=== PATIENT | male | born 1945 | race Caucasian/White ===

== ENCOUNTER 2017-10-14 20:36 | Inpatient (IN) | payer MEDICARE, OTHER ==
[2017-10-14] VITALS (9 sets, daily range): BP systolic 105–130; BP diastolic 55–59; PULSE 84–94; RESP 20–25; TEMP 98.8; O2SAT 35–100
[~2017-10-14] VITALS: Ht 175.3 cm; Wt 118.5 kg
[~2017-10-14 20:36] MED LIST: AGGR20025 PO; BUSP5TAB3 PO; CHOL1TAB7 PO; FOLI1 PO; GEMF600T PO; METO25 PO; OMEP20TA39 PO; REME30TA PO; SERO300T PO; SERT100 PO; SIMV40 PO; VITA400C28 PO; ZOCO80TA PO
[2017-10-14] MEDS ORDERED: NALOXONE HCL 0.4 MG/ML AMP IV PUSH PRN (21:00)
[2017-10-14] MEDS ORDERED: RESP: ALBUTEROL 2.5 MG/IPRATROPIUM 0.5 MG NEB (SCH) NEB ONE (21:00)
[2017-10-14] MEDS ORDERED: BUSP15TA PO (21:16)
[2017-10-14] MEDS ORDERED: TYLE325T PO (21:16)
[2017-10-14] MEDS ORDERED: FOLI400T PO (21:16)
[2017-10-14] MEDS ORDERED: OMEP20TA93 PO (21:16)
[2017-10-14] MEDS ORDERED: D 50CAP2 PO (21:16)
[2017-10-14] MEDS ORDERED: METO25TA3 PO (21:16)
[2017-10-14] MEDS ORDERED: SIMV40TA PO (21:16)
[2017-10-14] MEDS ORDERED: MIRT30TA PO (21:16)
[2017-10-14] MEDS ORDERED: SERT-129 PO (21:16)
[2017-10-14] MEDS ORDERED: GEMF600T PO (21:16)
[2017-10-14] MEDS ORDERED: AGGR20025 PO (21:16)
[2017-10-14] MEDS ORDERED: QUET1TAB10 PO (21:16)
--- NOTE | 2017-10-14 21:27 | PD ---
HPI Chief Complaint: Altered Mental Status Time Seen by Provider: 20:52 Travel History International Travel<30 days: No Contact w/Intl Traveler<30days: No Traveled to known affect area: No History of Present Illness HPI Patient is from home where he lives with his son patient suddenly had a deterioration of his respiratory status over the last few days due to an upper respiratory infection with a cough now today became worse and more confused. and lethargic . On arrival he is is 100% nonrebreather in place satting 100% vitals are within normal limits however patient is minimally responsive apparently he took his nighttime meds prior to the paramedics being called and he is severely sedated with multiple sedation meds including Seroquel. Is unclear he has a history of COPD because his meds do not include any COPD meds son is en route but at this time we only have the EMS report and his bag of medication and last patient is not able to give a good history he is a very sedated minimally responsive however he is protecting his airway and has no need to be intubated at this time he is holding his sat with the nonrebreather in place he will open his eyes to command [facility] Past Medical History Arthritis: No Asthma: No Blood Disorders: No Anxiety: Yes Depression: Yes Heart Rhythm Problems: No Cancer: No Cardiac Catheterization: Yes Cardiovascular Problems: Yes (ID) High Cholesterol: Yes Chemotherapy: No Chest Pain: Yes Congestive Heart Failure: Yes COPD: Yes Cerebrovascular Accident: Yes Diabetes: No Diminished Hearing: No Endocrine: No Gastrointestinal Disorders: Yes (DIVERTICULI) GERD: Yes Genitourinary: No Headaches: Yes (MILD) Hepatitis: No Hiatal Hernia: No Hypertension: Yes Immune Disorder: No Musculoskeletal: No Neurologic: Yes Psychiatric: Yes (MOOD PROBLEMS, DEPRESSION) Reproductive: No Respiratory: Yes Migraines: No Myocardial Infarction: Yes (X3) Seizures: No Sleep Apnea: Yes Thyroid Disease: No Ulcer: No Past Surgical History Abdominal Surgery: No AICD: No Appendectomy: No Arteriovenous Shunt: No Cardiac Surgery: Yes (CAROTID ENDART RIGHT, STENTS) Cholecystectomy: Yes Coronary Artery Bypass Graft: No Coronary Stent: Yes Ear Surgery: No Endocrine Surgery: No Eye Surgery: No Genitourinary Surgery: No Gynecologic Surgery: No Insulin Pump: No Joint Replacement: Yes (LT KNEE RE-CONSTRUCTION 3X) Neurologic Surgery: Yes (LEFT SIDED WEAKNESS-BRAIN SX 2 MOS AGO(ANEURISM )) Oral Surgery: No Pacemaker: No Other Surgery: Yes (RT ROTATOR CUFF REPAIR(RT SHOULDER SX)) Family History Family Myocardial Infarction: Yes (FATHER HAD ID AGE 58) Social History Alcohol Use: No (NONE ANY MORE. WAS A SOCIAL DRINKER ONLY) Tobacco Use: Yes (1/2 PPD) Substance Use: No Allergies-Medications (Allergen,Severity, Reaction): Coded Allergies: codeine (Unverified Allergy, Severe, Nausea/Vomiting, 05/18/17) Reported Meds & Prescriptions Reported Meds & Active Scripts Active Reported Metformin (Metformin HCl) 500 Mg Tab 500 Mg PO BIDPC Losartan (Losartan Potassium) 25 Mg Tab 12.5 Mg PO DAILY Gabapentin 100 Mg Cap 100 Mg PO HS Atorvastatin (Atorvastatin Calcium) 40 Mg Tab 40 Mg PO HS Aspirin 325 Mg Tab 325 Mg PO DAILY Folic Acid 0.4 Mg Tab 1 Mg PO DAILY D3 Maximum Strength (Cholecalciferol) 5,000 Unit Cap 5,000 Units PO DAILY Gemfibrozil 600 Mg Tab 600 Mg PO BIDAC Take 30 minutes prior to breakfast and dinner. Omeprazole 20 Mg Tab 20 Mg PO DAILY Tylenol (Acetaminophen) 325 Mg Tab 325 Mg PO ONCE Mirtazapine 30 Mg Tab 30 Mg PO HS Buspirone (Buspirone HCl) 15 Mg Tab 15 Mg PO TID Sertraline (Sertraline HCl) 100 Mg Tab 100 Mg PO BID Quetiapine (Quetiapine Fumarate) 300 Mg Tab 300 Mg PO HS Metoprolol Tartrate 25 Mg Tab 12.5 Mg PO BID Aggrenox (Dipyridamole/Aspirin) 200-25 Mg Cap 1 Cap PO BID Review of Systems ROS Limitations: Other: (lethargic from taking all of his nighttime sedation meds as well as possible sepsis) Except as stated in HPI: all other systems reviewed are Neg Physical Exam Narrative GENERAL: is very sedated seems he is lethargic possibly due to sepsis infection or oversedation with medication he will open his eyes to command voice command SKIN: Warm and dry. HEAD: Atraumatic. Normocephalic. EYES: Pupils equal and round. No scleral icterus. No injection or drainage. Pinpoint pupils bilateral ENT: No nasal bleeding or discharge. Mucous membranes pink and moist. NECK: Trachea midline. No JVD. CARDIOVASCULAR: Regular rate and rhythm. RESPIRATORY: No accessory muscle use. . Diffuse wheeze in the upper airways bilaterally. GASTROINTESTINAL: Abdomen soft,distended. Hepatic and splenic margins not palpable. MUSCULOSKELETAL: Extremities without clubbing, cyanosis, or edema. No obvious deformities. NEUROLOGICAL: Patient is very lethargic however he will open his eyes to command there is no obvious focal deficit he moves his arms and legs however he is very sedated very lethargic questionable oversedation versus sepsis and altered mental status Psychiatric very lethargic Data Data Last Documented VS Vital Signs Date Time Temp Pulse Resp B/P (MAP) Pulse Ox O2 Delivery O2 Flow Rate FiO2 10/14/17 23:50 85 25 123/59 (80) 98 40 10/14/17 21:45 Nasal Cannula 4.00 10/14/17 20:48 98.8 Orders Orders Electrocardiogram (10/14/17 20:52) Complete Blood Count With Diff (10/14/17 20:52) Comprehensive Metabolic Panel (10/14/17 20:52) Lactic Acid Sepsis Protocol (10/14/17 20:52) Lipase (10/14/17 20:52) Blood Culture (10/14/17 20:52) Chest, Single Ap (10/14/17 20:52) Blood Glucose (10/14/17 20:52) Ecg Monitoring (10/14/17 20:52) Iv Access Insert/Monitor (10/14/17 20:52) Oximetry (10/14/17 20:52) Oxygen Administration (10/14/17 20:52) Albuterol-Ipratropium Neb (Duoneb Neb) (10/14/17 21:00) Naloxone Inj (Narcan Inj) (10/14/17 21:00) Piperacil-Tazo 3.375 Gm Premix (Zosyn 3. (10/14/17 21:30) Vancomycin Inj (Vancomycin Inj) (10/14/17 21:30) B-Type Natriuretic Peptide (10/14/17 21:17) Troponin I (10/14/17 21:54) Resp Bipap / Cpap Non Invas Vt (10/14/17 ) Arterial Blood Gas (Abg) (10/14/17 23:20) Admit To Inpatient (10/15/17 ) Vital Signs (Adult) Q4H (10/15/17 00:07) Activity Oob With Assistance (10/15/17 00:07) Aircraft Engine Cylinder Mechanic / Telemetry .CONTINUOUS (10/15/17 00:07) Diet Heart Healthy (10/15/17 Breakfast) Sodium Chloride 0.9% Flush (Ns Flush) (10/15/17 00:15) Sodium Chloride 0.9% Flush (Ns Flush) (10/15/17 09:00) Pt Request For Service (10/15/17 00:07) Case Management Consult (10/15/17 00:07) Naloxone Inj (Narcan Inj) (10/15/17 00:15) Inpatient Certification (10/15/17 ) Albuterol-Ipratropium Neb (Duoneb Neb) (10/15/17 04:00) Albuterol-Ipratropium Neb (Duoneb Neb) (10/15/17 00:15) Admit Order (Ed Use Only) (10/15/17 00:10) Labs Laboratory Tests Test 10/14/17 20:59 10/14/17 23:20 White Blood Count 6.8 TH/MM3 Red Blood Count 3.63 MIL/MM3 Hemoglobin 11.6 GM/DL Hematocrit 35.9 % Mean Corpuscular Volume 98.8 FL Mean Corpuscular Hemoglobin 31.9 PG Mean Corpuscular Hemoglobin Concent 32.3 % Red Cell Distribution Width 17.6 % Platelet Count 195 TH/MM3 Mean Platelet Volume 8.0 FL Neutrophils (%) (Auto) 72.3 % Lymphocytes (%) (Auto) 10.3 % Monocytes (%) (Auto) 15.2 % Eosinophils (%) (Auto) 2.0 % Basophils (%) (Auto) 0.2 % Neutrophils # (Auto) 4.9 TH/MM3 Lymphocytes # (Auto) 0.7 TH/MM3 Monocytes # (Auto) 1.0 TH/MM3 Eosinophils # (Auto) 0.1 TH/MM3 Basophils # (Auto) 0.0 TH/MM3 CBC Comment DIFF FINAL Differential Comment Blood Urea Nitrogen 22 MG/DL Creatinine 1.21 MG/DL Random Glucose 123 MG/DL Total Protein 7.5 GM/DL Albumin 3.3 GM/DL Calcium Level 8.2 MG/DL Alkaline Phosphatase 92 U/L Aspartate Amino Transf (AST/SGOT) 21 U/L Alanine Aminotransferase (ALT/SGPT) 32 U/L Total Bilirubin 0.4 MG/DL Sodium Level 141 MEQ/L Potassium Level 4.3 MEQ/L Chloride Level 104 MEQ/L Carbon Dioxide Level 32.4 MEQ/L Anion Gap 5 MEQ/L Estimat Glomerular Filtration Rate 59 ML/MIN Lactic Acid Level 1.0 mmol/L Troponin I LESS THAN 0.02 NG/ML B-Type Natriuretic Peptide 85 PG/ML Lipase 268 U/L Blood Gas Puncture Site RT RADIAL Blood Gas Patient Temperature 98.6 Blood Gas HCO3 30 mmol/L Blood Gas Base Excess 3.9 mmol/L Blood Gas Oxygen Saturation 94 % Arterial Blood pH 7.27 Arterial Blood Partial Pressure CO2 67 mmHg Arterial Blood Partial Pressure O2 83 mmHG Arterial Blood Oxygen Content 14.0 Vol % Arterial Blood Carboxyhemoglobin 1.5 % Arterial Blood Methemoglobin 0.1 % Blood Gas Hemoglobin 10.6 G/DL Oxygen Delivery Device BIPAP Blood Gas Ventilator Setting IPAP12 EPAP6 Blood Gas Inspired Oxygen 40 % MDM Medical Decision Making Medical Screen Exam Complete: Yes Emergency Medical Condition: Yes Medical Record Reviewed: Yes Interpretation(s) EKG is normal sinus rhythm at a rate of 80 no ectopy one PAC Differential Diagnosis Differential diagnosis includes CHF versus COPD exacerbation versus aspiration pneumonia due to oversedation versus bacterial pneumonia versus pneumothorax versus influenza bronchitis Narrative Course Patient is immediately placed on a nonrebreather to get a saturation 200% his pressure is within normal limits his heart rate is within normal limits however after we take off the nonrebreather nonrebreather he is descending to 85 put him on 4 L nasal cannula he holds around 9192 but then desats again. Empirically I give him antibiotics because on the medial x-ray looks like he got a left lower infiltrate and after time I put him on BiPAP because he is descending he is a large man and he is taking a large amount of sedation to go to bed is normal limits according to his son however it may be causing him have sleep apnea which is part of the reason he's retaining some CO2 ABG shows 67% CO2 and his gas increase the rate from 12-14 on his ventilator BiPAP and admit to [facility] for for their evaluation and give him antibiotics Vanco and Zosyn as well as his troponin is negative his EKG is normal sinus rhythm at a rate of 80 chest x-ray is being read as nonspecific thickened acute pathology he is admitted to [facility] with the BiPAP machine Critical Care Narrative 30 minutes of critical care time on this patient Diagnosis Primary Impression: Respiratory distress Additional Impression: Hypercapnia Admitting Information Admitting Physician Requests: Admit Scripts Budesonide-Formoterol Inh (Symbicort Inh) 160-4.5 Mcg/Act Aero 1 PUFF INH Q12HR, #1 INHALER 0 Refills Prov: Alexi Tran MD 10/17/17 [guaiFENesin ER] 600 MG TABCR No Conflict Check 600 MG PO BID for respiratory, #60 TAB 0 Refills Prov: Alexi Tran MD 10/17/17 Oxygen (O2) (Oxygen (O2)) Device LITER JESSICA.CANULA CONTINUOUS for Prevent Hypoxemia, #2 0 Refills Oxygen Concentrator Portable Gaseous 2 L/min via Nasal Canula Continuous For 99 months Prov: Alexi Tran MD 10/17/17 Cecilio Navas MD Oct 14, 2017 21:27
[2017-10-14] MEDS ORDERED: PIPERACIL-TAZO 3.375 GM PREMIX 50 ML IV ONE (21:30)
[2017-10-14] MEDS ORDERED: VANCOMYCIN INJ 1,000 MG in SODIUM CHLOR 0.9% 250 ML INJ 250 ML IV ONE (21:30)
[2017-10-14 21:41] LABS: AUTOMATED NEUTROPHIL # 4.9 TH/MM3 (1.8-7.7); BASOPHIL % 0.2 % (0.0-2.0); EOSINOPHIL # 0.1 TH/MM3 (0-0.4); HEMATOCRIT 35.9 % (39.0-51.0); HEMOGLOBIN 11.6 GM/DL (13.0-17.0); LYMPH % 10.3 % (9.0-44.0); LYMPHOCYTE # 0.7 TH/MM3 (1.0-4.8); MEAN CELL VOLUME 98.8 FL (80.0-100.0); MEAN CORPUSCULAR HEMOGLOBIN 31.9 PG (27.0-34.0); MEAN CORPUSCULAR HGB CONC 32.3 % (32.0-36.0); MONO % 15.2 % (0.0-8.0); NEUT % 72.3 % (16.0-70.0); PLATELET COUNT 195 TH/MM3 (150-450); RED BLOOD COUNT 3.63 MIL/MM3 (4.50-5.90); RED CELL DISTRIBUTION WIDTH 17.6 % (11.6-17.2); WHITE BLOOD COUNT 6.8 TH/MM3 (4.0-11.0)
--- NOTE | 2017-10-14 21:41 | RADRPT ---
EXAM DATE/TIME: 10/14/2017 21:06 [place] COMPARISON: No previous studies available for comparison. INDICATIONS : Shortness of breath. MEDICAL HISTORY : None. SURGICAL HISTORY : None. ENCOUNTER: Initial ACUITY: 1 day PAIN SCORE: Non-responsive. LOCATION: Bilateral chest FINDINGS: A single view of the chest demonstrates the lungs to be symmetrically aerated without evidence of mas s, infiltrate or effusion. The cardiomediastinal contours are unremarkable. Osseous structures are intact. CONCLUSION: No acute cardiopulmonary disease demonstrated. Lester Mann MD on October 14, 2017 at 21:37 Board Certified Radiologist. This report was verified electronically.
[2017-10-14 21:47] LABS: ALT (GPT) 32 U/L (12-78)
[2017-10-14 21:49] LABS: ALKALINE PHOSPHATASE 92 U/L (45-117); TOTAL BILIRUBIN ADULT 0.4 MG/DL (0.2-1.0); TOTAL PROTEIN 7.5 GM/DL (6.4-8.2)
[2017-10-14 21:54] LABS: ALBUMIN 3.3 GM/DL (3.4-5.0); AST (GOT) 21 U/L (15-37); BICARBONATE 32.4 MEQ/L (21.0-32.0); BLOOD UREA NITROGEN 22 MG/DL (7-18); CALCIUM 8.2 MG/DL (8.5-10.1); CHLORIDE 104 MEQ/L (98-107); CREATININE 1.21 MG/DL (0.60-1.30); GLOMERULAR FILTRATION RATE 59 ML/MIN (>89); GLUCOSE,RANDOM 123 MG/DL (74-106); LIPASE 268 U/L (73-393); SODIUM (NA) 141 MEQ/L (136-145)
[2017-10-14] MEDS ORDERED: ASPI-183 PO (22:15)
[2017-10-14] MEDS ORDERED: ATOR40TA16 PO (22:15)
[2017-10-14] MEDS ORDERED: LOSA25TA PO (22:15)
[2017-10-14] MEDS ORDERED: METF500T PO (22:15)
[2017-10-14] MEDS ORDERED: GABA100C4 PO (22:15)
[2017-10-15] VITALS (26 sets, daily range): BP systolic 130–154; BP diastolic 50–86; PULSE 70–105; RESP 18–24; TEMP 98–98.8; O2SAT 92–96
[2017-10-15] MEDS ORDERED: SODIUM CHLORIDE 0.9% FLUSH 10 ML FLUSH IV FLUSH PRN (00:15)
[2017-10-15] MEDS ORDERED: NALOXONE HCL 0.4 MG/ML AMP IV PUSH PRN (00:15)
[2017-10-15] MEDS ORDERED: RESP: ALBUTEROL 2.5 MG/IPRATROPIUM 0.5 MG NEB (PRN) NEB (00:15)
--- NOTE | 2017-10-15 00:56 | HHI.HP ---
[facility] Admission Diagnosis Hypercapnia Diagnoses: Travel History International Travel<30 Days: No Contact w/Intl Traveler <30 Da: No Traveled to Known Affected Are: No History of Present Illness History from ER physician communication, review of medical records, and nursing staff. Patient himself is quite lethargic and on BiPAP at the time of my examination. He would awaken to verbal stimuli but would fall straight back to sleep and does not answer questions. He is really not able to give any history at all. Per nursing staff who spoke to patient's son, this is usually how patient looked like at night time. Patient does not take his medications properly as prescribed and usually would take all his medications and one shot at nighttime. The son reported that the father always looks drowsy and sleepy at night times such as this. Per the son's report to ER, patient has been having shortness of breath, sore throat, and cough for past few days. EMS arrival patient's O2 sats was 85% on room air. Patient was brought in by EMS on nonrebreather. He was also on nonrebreather briefly while in ER. He took a bunch of medications prior to arrival to ER. Therefore patient became more and more lethargic while in ER. His ABGs revealed CO2 retention. He was immediately placed on BiPAP. History is limited as patient is not able to give properly. Review of Systems ROS Limitations: Altered Mental Status, Poor Historian Past Family Social History Past Medical History CAD - s/p stent, CABG bilateral carotid artery cea Cerebral aneurysm repaired in 2008 TIA HTN Headaches Dizziness Unsteady gait Left knee repair Right rotator cuff surgery PTSD Anxiety Past Surgical History Bilateral carotid artery surgery Coronary angiogram and stenting Brain bypass Left knee ACL repair Right rotator cuff surgery Allergies: Coded Allergies: codeine (Unverified Allergy, Severe, Nausea/Vomiting, 05/18/17) Family History Unknown Social History Unknown Physical Exam Vital Signs Vital Signs Date Time Temp Pulse Resp B/P (MAP) Pulse Ox O2 Delivery O2 Flow Rate FiO2 10/14/17 23:50 85 25 123/59 (80) 98 40 10/14/17 22:45 84 25 105/55 (72) 95 40 10/14/17 22:35 40 10/14/17 21:45 84 25 117/56 (76) 92 Nasal Cannula 4.00 10/14/17 20:57 20 100 Non-Rebreather 15.00 10/14/17 20:56 100 Non-Rebreather 15.00 10/14/17 20:54 92 20 15 Non-Rebreather 15.00 10/14/17 20:48 98.8 94 20 130/59 (82) 100 Physical Exam GENERAL: This is a well-nourished, well-developed patient, questions lethargic. Awakens to verbal stimuli but falls right back asleep. On BiPAP. Obese. SKIN: No rashes, ecchymoses or lesions. Cool and dry. HEAD: Atraumatic. Normocephalic. No temporal or scalp tenderness. EYES: No scleral icterus. No injection or drainage. ENT: Nose without bleeding, purulent drainage or septal hematoma. Airway patent. NECK: Trachea midline. No JVD Supple, nontender, no meningeal signs.Short thick neck CARDIOVASCULAR: Regular rate and rhythm without murmurs, gallops, or rubs. RESPIRATORY: Limited exam due to BiPAP sounds. No sheree rales GASTROINTESTINAL: Abdomen soft, non-tender, nondistended. No guarding. MUSCULOSKELETAL: Extremities without clubbing, cyanosis, or edema No calf tenderness. NEUROLOGICAL: Quite sleepy and lethargic. Motor and sensory grossly within normal limits. Limited exam. Laboratory Laboratory Tests Test 10/14/17 20:59 10/14/17 23:20 White Blood Count 6.8 Red Blood Count 3.63 Hemoglobin 11.6 Hematocrit 35.9 Mean Corpuscular Volume 98.8 Mean Corpuscular Hemoglobin 31.9 Mean Corpuscular Hemoglobin Concent 32.3 Red Cell Distribution Width 17.6 Platelet Count 195 Mean Platelet Volume 8.0 Neutrophils (%) (Auto) 72.3 Lymphocytes (%) (Auto) 10.3 Monocytes (%) (Auto) 15.2 Eosinophils (%) (Auto) 2.0 Basophils (%) (Auto) 0.2 Neutrophils # (Auto) 4.9 Lymphocytes # (Auto) 0.7 Monocytes # (Auto) 1.0 Eosinophils # (Auto) 0.1 Basophils # (Auto) 0.0 CBC Comment DIFF FINAL Differential Comment Blood Urea Nitrogen 22 Creatinine 1.21 Random Glucose 123 Total Protein 7.5 Albumin 3.3 Calcium Level 8.2 Alkaline Phosphatase 92 Aspartate Amino Transf (AST/SGOT) 21 Alanine Aminotransferase (ALT/SGPT) 32 Total Bilirubin 0.4 Sodium Level 141 Potassium Level 4.3 Chloride Level 104 Carbon Dioxide Level 32.4 Anion Gap 5 Estimat Glomerular Filtration Rate 59 Lactic Acid Level 1.0 Troponin I LESS THAN 0.02 B-Type Natriuretic Peptide 85 Lipase 268 Blood Gas Puncture Site RT RADIAL Blood Gas Patient Temperature 98.6 Blood Gas HCO3 30 Blood Gas Base Excess 3.9 Blood Gas Oxygen Saturation 94 Arterial Blood pH 7.27 Arterial Blood Partial Pressure CO2 67 Arterial Blood Partial Pressure O2 83 Arterial Blood Oxygen Content 14.0 Arterial Blood Carboxyhemoglobin 1.5 Arterial Blood Methemoglobin 0.1 Blood Gas Hemoglobin 10.6 Oxygen Delivery Device BIPAP Blood Gas Ventilator Setting IPAP12 EPAP6 Blood Gas Inspired Oxygen 40 Date/Time Source Procedure Growth Status 10/14/17 20:56 Blood Peripheral Aerobic Blood Culture Pending Received 10/14/17 20:56 Blood Peripheral Anaerobic Blood Culture Pending Received Result Diagram: 10/14/17205810/14/172058 Imaging Last 48 hours Impressions Chest X-Ray 10/14/172051 Signed Impressions: Service Date/Time: October 21:06 - CONCLUSION: No acute cardiopulmonary disease demonstrated. MD Tara Galvez VTE Risk Assessment Caprini VTE Risk Assessment: Mod/High Risk (score >= 2) Caprini Risk Assessment Model Point Value = 1 Point Value = 2 Point Value = 3 Point Value = 5 Age 41-60 Minor surgery BMI > 25 kg/m2 Swollen legs Varicose veins or History of unexplained or recurrent spontaneous Oral contraceptives or hormone replacement Sepsis (< 1 month) Serious lung disease, including pneumonia (< 1 month) Abnormal pulmonary function Acute myocardial infarction Congestive heart failure (< 1 month) History of inflammatory bowel disease Medical patient at bed rest Age 61-74 Arthroscopic surgery Major open surgery (> 45 min) Laparoscopic surgery (> 45 min) Malignancy Confined to bed (> 72 hours) Immobilizing plaster cast Central venous access Age >= 75 History of VTE Family history of VTE Factor V Leiden Prothrombin [id number] Lupus anticoagulant Anticardiolipin antibodies Elevated serum homocysteine Heparin-induced thrombocytopenia Other congenital or acquired thrombophilia Stroke (< 1 month) Elective arthroplasty Hip, pelvis, or leg fracture Acute spinal cord injury (< 1 month) Prophylaxis Regimen Total Risk Factor Score Risk Level Prophylaxis Regimen 0-1 Low Early ambulation 2 Moderate Order ONE of the following: *Sequential Compression Device (SCD) *Heparin 5000 units SQ BID 3-4 Higher Order ONE of the following medications: *Heparin 5000 units SQ TID *Enoxaparin/Lovenox 40 mg SQ daily (WT < 150 kg, CrCl > 30 mL/min) *Enoxaparin/Lovenox 30 mg SQ daily (WT < 150 kg, CrCl > 10-29 mL/min) *Enoxaparin/Lovenox 30 mg SQ BID (WT < 150 kg, CrCl > 30 mL/min) AND/OR *Sequential Compression Device (SCD) 5 or more Highest Order ONE of the following medications: *Heparin 5000 units SQ TID (Preferred with Epidurals) *Enoxaparin/Lovenox 40 mg SQ daily (WT < 150 kg, CrCl > 30 mL/min) *Enoxaparin/Lovenox 30 mg SQ daily (WT < 150 kg, CrCl > 10-29 mL/min) *Enoxaparin/Lovenox 30 mg SQ BID (WT < 150 kg, CrCl > 30 mL/min) AND *Sequential Compression Device (SCD) Assessment and Plan Assessment and Plan Impression: Altered mental status secondary to CO2 narcosis Acute hypoxemic and hypercapnic respiratory failure Possible viral infection from limited history. CAD - s/p stent, CABG bilateral carotid artery cea Cerebral aneurysm repaired in 2008 TIA HTN Headaches Dizziness Unsteady gait Left knee repair Right rotator cuff surgery PTSD Anxiety Plan: Hold all sedative medications. Continue BiPAP. ABG stat repeat. Taper off oxygen to keep O2 sat 90-92%. Will adjust BiPAP settings based on ABGs. Admit patient to [facility] for close monitoring. Resume his antihypertensive medications. DVT prophylaxis with Lovenox. Discussed Condition With Patient, ER physician, nursing staff Physician Certification 2 Midnight Certification Type: Admission for Inpatient Services Order for Inpatient Services The services are ordered in accordance with Medicare regulations or non- Medicare payer requirements, as applicable. In the case of services not specified as inpatient-only, they are appropriately provided as inpatient services in accordance with the 2-midnight benchmark. Estimated LOS (days): 3 days is the estimated time the patient will need to remain in the hospital, assuming treatment plan goals are met and no additional complications. Post-Hospital Plan: Home Nikolas Rodriguez MD Oct 15, 2017 00:56
[2017-10-15] MEDS: RESP: ALBUTEROL 2.5 MG/IPRATROPIUM 0.5 MG NEB (SCH) NEB ×4 (03:58→20:55)
[2017-10-15] MEDS ORDERED: PERMETHRIN 5% CREAM 60 GM TOPICAL ONE (06:15)
[2017-10-15] MEDS: DIPYRIDAMOLE/ASPIRIN 200 MG/25 MG CAP PO SCH ×3 (09:00→20:51)
[2017-10-15] MEDS: PANTOPRAZOLE SOD 20 MG DELAYED RELEASE TAB PO SCH (10:22)
[2017-10-15] MEDS: FOLIC ACID 1 MG TAB PO SCH (10:22)
[2017-10-15] MEDS: GEMFIBROZIL 600 MG TAB PO SCH ×2 (10:22→18:32)
[2017-10-15] MEDS: ASPIRIN 325 MG TAB PO SCH (10:22)
[2017-10-15] MEDS: METOPROLOL TARTRATE 25 MG TAB PO SCH ×2 (10:22→20:51)
[2017-10-15] MEDS: LOSARTAN 25 MG TAB PO SCH (10:23)
[2017-10-15] MEDS: ENOXAPARIN SODIUM 40 MG/0.4 ML SYRINGE SQ SCH (10:23)
--- NOTE | 2017-10-15 16:44 | EKG ---
Date Performed: 10/14/2017 Time Performed: 22:42:29 PTAGE: 72 years EKG: Sinus rhythm WITH OCCASIONAL SUPRAVENTRICULAR PREMATURE COMPLEXES NONSPECIFIC T-WAVE ABNORMALITY BORDERLINE ECG PREVIOUS TRACING : 11/24/2011 07.41 Since previous tracing, no significant change noted DOCTOR: Albert Juares Interpretating Date/Time 10/15/2017 16:43:22
[2017-10-15] MEDS: SODIUM CHLORIDE 0.9% FLUSH 10 ML FLUSH IV FLUSH SCH (20:51)
[2017-10-15] MEDS: ATORVASTATIN 40 MG TAB PO SCH (20:51)
[2017-10-16] VITALS (24 sets, daily range): BP systolic 133–168; BP diastolic 67–81; PULSE 72–91; RESP 18–20; TEMP 98–98.5; O2SAT 92–98
[2017-10-16] MEDS: RESP: ALBUTEROL 2.5 MG/IPRATROPIUM 0.5 MG NEB (SCH) NEB ×4 (03:06→20:36)
[2017-10-16] MEDS: GEMFIBROZIL 600 MG TAB PO SCH ×2 (06:12→16:20)
[2017-10-16] MEDS: DIPYRIDAMOLE/ASPIRIN 200 MG/25 MG CAP PO SCH ×2 (08:30→20:05)
[2017-10-16] MEDS: PANTOPRAZOLE SOD 20 MG DELAYED RELEASE TAB PO SCH (08:30)
[2017-10-16] MEDS: METOPROLOL TARTRATE 25 MG TAB PO SCH ×2 (08:30→20:04)
[2017-10-16] MEDS: LOSARTAN 25 MG TAB PO SCH (08:30)
[2017-10-16] MEDS: FOLIC ACID 1 MG TAB PO SCH (08:30)
[2017-10-16] MEDS: ASPIRIN 325 MG TAB PO SCH (08:30)
[2017-10-16] MEDS: SODIUM CHLORIDE 0.9% FLUSH 10 ML FLUSH IV FLUSH SCH ×2 (08:31→20:05)
--- NOTE | 2017-10-16 10:25 | HHI.PR ---
Subjective Remarks This is a pleasant 72 y/o male who came to ER lethargic and was placed on BiPAP , he is non compliant with medicines he had shortness of breath, sore throat, cough ABGs showed CO2 retention, as we know he has CAD status post stent placement and CABG, Bilateral carotid artery CEA, Cerebral aneurysm repaired in 2008, TIA, Hypertension, PTSD, Anxiety disorder, seen in his bedroom in the presence of his Brother, he is cleaning his house due to Bed bugs. Improving respiratory status. Objective Vital Signs Date Time Temp Pulse Resp B/P (MAP) Pulse Ox O2 Delivery O2 Flow Rate FiO2 10/16/17 10:08 81 10/16/17 09:09 79 10/16/17 08:00 92 Nasal Cannula 4.00 10/16/17 08:00 78 10/16/17 08:00 98.5 82 20 168/79 (108) 92 10/16/17 06:00 79 10/16/17 05:00 82 10/16/17 04:00 84 10/16/17 04:00 98.2 84 18 151/67 (95) 94 10/16/17 04:00 Nasal Cannula 4.00 10/16/17 03:00 85 10/16/17 02:00 80 10/16/17 01:02 95 30 10/16/17 01:00 87 10/16/17 00:00 98.3 86 18 133/74 (93) 93 10/16/17 00:00 86 10/16/17 00:00 Nasal Cannula 4.00 10/15/17 23:00 87 10/15/17 22:00 98 10/15/17 21:20 95 30 10/15/17 21:00 95 10/15/17 20:56 95 Nasal Cannula 3.00 10/15/17 20:00 99 10/15/17 20:00 Nasal Cannula 4.00 10/15/17 20:00 98.1 99 20 141/66 (91) 92 10/15/17 18:00 92 10/15/17 17:00 98.6 105 20 132/50 (77) 93 10/15/17 15:00 79 10/15/17 14:00 84 10/15/17 13:00 70 10/15/17 12:00 98.8 95 22 154/83 (106) 95 I/O 10/15/17 10/15/17 10/15/17 10/16/17 10/16/17 10/16/17 07:00 15:00 23:00 07:00 15:00 23:00 Intake Total 300 ml 240 ml Output Total 600 ml Balance 300 ml -360 ml Intake Oral 240 ml IV Total 300 ml Output Urine Total 600 ml # Bowel Movements 0 0 Result Diagram: 10/14/17205810/14/172058 Imaging Last Impressions Chest X-Ray 10/14/172051 Signed Impressions: Service Date/Time: October 21:06 - CONCLUSION: No acute cardiopulmonary disease demonstrated. Lester Mann MD Procedures BiPAP Other Results Laboratory Tests Test 10/14/17 20:59 10/15/17 01:35 White Blood Count 6.8 TH/MM3 Red Blood Count 3.63 MIL/MM3 Hemoglobin 11.6 GM/DL Hematocrit 35.9 % Mean Corpuscular Volume 98.8 FL Mean Corpuscular Hemoglobin 31.9 PG Mean Corpuscular Hemoglobin Concent 32.3 % Red Cell Distribution Width 17.6 % Platelet Count 195 TH/MM3 Mean Platelet Volume 8.0 FL Neutrophils (%) (Auto) 72.3 % Lymphocytes (%) (Auto) 10.3 % Monocytes (%) (Auto) 15.2 % Eosinophils (%) (Auto) 2.0 % Basophils (%) (Auto) 0.2 % Neutrophils # (Auto) 4.9 TH/MM3 Lymphocytes # (Auto) 0.7 TH/MM3 Monocytes # (Auto) 1.0 TH/MM3 Eosinophils # (Auto) 0.1 TH/MM3 Basophils # (Auto) 0.0 TH/MM3 CBC Comment DIFF FINAL Differential Comment Blood Urea Nitrogen 22 MG/DL Creatinine 1.21 MG/DL Random Glucose 123 MG/DL Total Protein 7.5 GM/DL Albumin 3.3 GM/DL Calcium Level 8.2 MG/DL Alkaline Phosphatase 92 U/L Aspartate Amino Transf (AST/SGOT) 21 U/L Alanine Aminotransferase (ALT/SGPT) 32 U/L Total Bilirubin 0.4 MG/DL Sodium Level 141 MEQ/L Potassium Level 4.3 MEQ/L Chloride Level 104 MEQ/L Carbon Dioxide Level 32.4 MEQ/L Anion Gap 5 MEQ/L Estimat Glomerular Filtration Rate 59 ML/MIN Lactic Acid Level 1.0 mmol/L Troponin I LESS THAN 0.02 NG/ML B-Type Natriuretic Peptide 85 PG/ML Lipase 268 U/L Blood Gas Puncture Site RT RADIAL Blood Gas Patient Temperature 98.6 Blood Gas HCO3 31 mmol/L Blood Gas Base Excess 4.8 mmol/L Blood Gas Oxygen Saturation 92 % Arterial Blood pH 7.29 Arterial Blood Partial Pressure CO2 66 mmHg Arterial Blood Partial Pressure O2 75 mmHG Arterial Blood Oxygen Content 14.1 Vol % Arterial Blood Carboxyhemoglobin 1.7 % Arterial Blood Methemoglobin 0.5 % Blood Gas Hemoglobin 10.9 G/DL Oxygen Delivery Device BIPAP Blood Gas Ventilator Setting IPAP=12 EPAP=6 Blood Gas Inspired Oxygen 35 % Objective Remarks GENERAL: Obese patient in no acute distress. SKIN: No rashes, ecchymoses or lesions. Cool and dry. HEAD: Atraumatic. Normocephalic. No temporal or scalp tenderness. EYES: No scleral icterus. No injection or drainage. ENT: Nose without bleeding, purulent drainage or septal hematoma. Airway patent. NECK: Trachea midline. No JVD Supple, nontender, no meningeal signs.Short thick neck CARDIOVASCULAR: Regular rate and rhythm without murmurs, gallops, or rubs. RESPIRATORY: Limited exam due to BiPAP sounds. No sheree rales GASTROINTESTINAL: Abdomen soft, non-tender, nondistended. No guarding. MUSCULOSKELETAL: Extremities without clubbing, cyanosis, or edema No calf tenderness. NEUROLOGICAL: Quite sleepy and lethargic. Motor and sensory grossly within normal limits. Limited exam. Medications and IVs Current Medications Medications (Trade) Dose Ordered Sig/[place] Route Start Time Stop Time Status Last Admin (Narcan Inj) 0.2 mg UNSCH X1 PRN IV PUSH 10/14/17 21:00 10/14/17 21:08 (NS Flush) 2 ml UNSCH PRN IV FLUSH 10/15/17 00:15 (NS Flush) 2 ml BID IV FLUSH 10/15/17 09:00 10/16/17 08:31 (Narcan Inj) 0.4 mg UNSCH PRN IV PUSH 10/15/17 00:15 (Duoneb Neb) 1 ampule Q6HR NEB NEB 10/15/17 04:00 10/16/17 09:08 (Duoneb Neb) 1 ampule Q2HR NEB PRN NEB 10/15/17 00:15 (Aspirin) 325 mg DAILY PO 10/15/17 09:00 10/16/17 08:30 (Lipitor) 40 mg HS PO 10/15/17 21:00 10/15/17 20:51 (Aggrenox 200-25 Mg) 1 cap BID PO 10/15/17 09:00 10/16/17 08:30 (Folate) 1 mg DAILY PO 10/15/17 09:00 10/16/17 08:30 (Lopid) 600 mg BIDAC PO 10/15/17 07:00 10/16/17 06:12 (Cozaar) 12.5 mg DAILY PO 10/15/17 09:00 10/16/17 08:30 (Lopressor) 12.5 mg BID PO 10/15/17 09:00 10/16/17 08:30 (Protonix) 20 mg DAILY PO 10/15/17 09:00 10/16/17 08:30 (Lovenox Inj) 40 mg Q24H SQ 10/15/17 11:00 10/15/17 10:23 A/P Assessment and Plan 1. Encephalopathy Improved, was probably secondary to CO2 narcosis,e held all narcotic medicines, continue BiPAP as needed, Oxygen to keep Oxygen saturation over 92%, asked for CT Chest found Right [place] lesion for follow up in six months. 2. Acute hypoxemic and hypercapnic respiratory failure Improved. 3. CAD status post PCI and stent placement, CABG 4. bilateral Carotid artery CEA 5. Cerebral aneurysm repaired in 2008 6. TIA by history 7. Hypertension controlled. 8. PTSD and Anxiety disorder. 9. Severe Tobacco dependence strongly recommended to stop smoking. DVT prophylaxis with Lovenox. Discharge Planning Expected by Tomorrow. Alexi Tran MD Oct 16, 2017 10:25
[2017-10-16] MEDS: guaiFENesin E.R. 600 MG TAB PO SCH ×2 (10:59→20:04)
[2017-10-16] MEDS: ENOXAPARIN SODIUM 40 MG/0.4 ML SYRINGE SQ SCH (11:00)
--- NOTE | 2017-10-16 12:34 | RADRPT ---
EXAM DATE/TIME: 10/16/2017 12:17 [place] COMPARISON: No previous studies available for comparison. INDICATIONS : Chronic airway obstruction. RADIATION DOSE: 9.59 CTDIvol (mGy) MEDICAL HISTORY : Congestive hearrt failure. Stroke Hypertension. SURGICAL HISTORY : Cholecystectomy. ENCOUNTER: Initial ACUITY: 1 day PAIN SCALE: 0/10 LOCATION: chest TECHNIQUE: Volumetric scanning of the chest was performed. Using automated exposure control and adjustment of t he mA and/or kV according to patient size, radiation dose was kept as low as reasonably achievable to obtain optimal diagnostic quality images. DICOM format image data is available electronically for r eview and comparison. Follow-up recommendations for detected pulmonary nodules are based at a minimum on nodule size and pa tient risk factors according to Fleischner Society Guidelines. FINDINGS: LUNGS: Nodular pleural-based medial right apical opacity measuring 1.9 x 1.2 cm. Location and morphology wou ld favor scarring. Atelectasis at the inferior aspect of the right lower lobe. Mild atelectasis left lower lobe. PLEURAE: No evidence of pleural effusion. MEDIASTINUM: Mitral annulus calcification. Coronary artery calcification. Aortic diameter are within normal limits . No enlarged lymph nodes. AXILLAE: Within normal limits. No lymphadenopathy. MUSCULOSKELETAL: Within normal limits for patient age. MISCELLANEOUS: The visualized upper abdominal organs demonstrate no acute abnormality. CONCLUSION: 1. Pleural-based nodular density in the right lung apex with morphology favoring scarring. Recommend six-month followup right chest CT without contrast. 2. Bilateral lower lobe atelectasis. 3. Coronary artery calcification. Johnathan Yan MD on October 16, 2017 at 12:26 Board Certified Radiologist. This report was verified electronically.
[2017-10-16] MEDS: ATORVASTATIN 40 MG TAB PO SCH (20:04)
[2017-10-17] VITALS (16 sets, daily range): BP systolic 139–160; BP diastolic 73–89; PULSE 80–95; RESP 20–22; TEMP 98–98.4; O2SAT 92–96
[2017-10-17] MEDS: RESP: ALBUTEROL 2.5 MG/IPRATROPIUM 0.5 MG NEB (SCH) NEB ×3 (03:29→16:00)
[2017-10-17] MEDS: GEMFIBROZIL 600 MG TAB PO SCH ×2 (06:00→16:00)
[2017-10-17] MEDS: LOSARTAN 25 MG TAB PO SCH (08:25)
[2017-10-17] MEDS: DIPYRIDAMOLE/ASPIRIN 200 MG/25 MG CAP PO SCH (08:25)
[2017-10-17] MEDS: FOLIC ACID 1 MG TAB PO SCH (08:26)
[2017-10-17] MEDS: SODIUM CHLORIDE 0.9% FLUSH 10 ML FLUSH IV FLUSH SCH (08:26)
[2017-10-17] MEDS: guaiFENesin E.R. 600 MG TAB PO SCH (08:26)
[2017-10-17] MEDS: PANTOPRAZOLE SOD 20 MG DELAYED RELEASE TAB PO SCH (08:26)
[2017-10-17] MEDS: METOPROLOL TARTRATE 25 MG TAB PO SCH (08:26)
[2017-10-17] MEDS: ASPIRIN 325 MG TAB PO SCH (08:26)
[2017-10-17] MEDS: ENOXAPARIN SODIUM 40 MG/0.4 ML SYRINGE SQ SCH (10:11)
[2017-10-17] MEDS ORDERED: OXYGENDME NAS.CANULA (15:55)
[2017-10-17] MEDS ORDERED: guaiFENesin ER PO (15:57)
--- NOTE | 2017-10-17 15:57 | HHI.FF ---
Face to Face Verification Diagnosis: (1) Respiratory distress (2) Hypercapnia Home Health Nursing Order: Medical education Signs/symptoms of disease process Diabetic education Oxygen administration education Medication education-adverse effect Nursing assessment with vital signs I have seen patient Alejo Hidalgo on 10/17/17. My clinical findings support the need for the requested home health care services because: Ltd mobility - disease progression I certify that my clinical findings support that this patient is homebound because: Unsafe to leave home unassisted Alexi Tran MD Oct 17, 2017 15:57
[2017-10-17] MEDS ORDERED: SYMB160A INH (16:13)
--- NOTE | 2017-10-17 16:17 | HHI.PR ---
Subjective Remarks This is a pleasant 72 y/o male who came to ER lethargic and was placed on BiPAP , he is non compliant with medicines he had shortness of breath, sore throat, cough ABGs showed CO2 retention, as we know he has CAD status post stent placement and CABG, Bilateral carotid artery CEA, Cerebral aneurysm repaired in 2008, TIA, Hypertension, PTSD, Anxiety disorder, seen in his bedroom in the presence of his Brother, he is cleaning his house due to Bed bugs. Improving respiratory status. 10/17: Stable in his bedroom, discussed with his Brother and nurse, failed walking test will need oxygen at discharge, was discussed about Tobacco dependence and the need to stop smoking, will go home on Symbicort and Mucinex, oxygen and stop smoking to improve his condition, also will need to follow with PCP may have Sleep apnea and will need Polysomnography also probable obesity hypoventilation syndrome, weight loss warranted. Objective Vital Signs Date Time Temp Pulse Resp B/P (MAP) Pulse Ox O2 Delivery O2 Flow Rate FiO2 10/17/17 15:18 80 10/17/17 15:18 96 Nasal Cannula 2.00 10/17/17 15:18 98.4 84 20 145/82 (103) 96 10/17/17 14:28 85 10/17/17 13:03 85 10/17/17 13:00 2.00 10/17/17 12:10 83 10/17/17 11:27 92 Nasal Cannula 2.00 10/17/17 11:27 98.0 88 20 139/77 (97) 92 10/17/17 11:27 86 10/17/17 10:05 83 10/17/17 09:03 95 10/17/17 08:54 88 10/17/17 08:54 98.2 85 20 142/85 (104) 92 10/17/17 08:54 92 Nasal Cannula 2.00 10/17/17 06:00 85 10/17/17 05:00 87 10/17/17 04:00 Nasal Cannula 4.00 10/17/17 04:00 91 10/17/17 04:00 98.0 91 22 151/89 (109) 95 10/17/17 03:00 86 10/17/17 02:00 84 10/17/17 01:00 85 10/17/17 00:00 80 10/17/17 00:00 98.3 80 20 160/73 (102) 94 10/17/17 00:00 Nasal Cannula 4.00 10/16/17 23:00 82 10/16/17 22:00 84 10/16/17 21:00 89 10/16/17 20:42 98 Nasal Cannula 3.00 10/16/17 20:00 Nasal Cannula 4.00 10/16/17 20:00 98.1 91 20 160/81 (107) 95 10/16/17 20:00 91 10/16/17 18:04 89 10/16/17 17:07 83 10/16/17 16:29 Nasal Cannula 3.50 I/O 10/16/17 10/16/17 10/16/17 10/17/17 10/17/17 10/17/17 06:59 14:59 22:59 06:59 14:59 22:59 Intake Total 240 ml 600 ml 240 ml Output Total 600 ml 750 ml Balance -360 ml 600 ml -510 ml Intake Oral 240 ml 600 ml 240 ml Output Urine Total 600 ml 750 ml # Voids 2 # Bowel Movements 0 0 1 0 Result Diagram: 10/14/17205810/14/172058 Imaging Last Impressions Chest CT 10/16/17 0000 Signed Impressions: Service Date/Time: Monday, October 16, 2017 12:17 - CONCLUSION: 1. Pleural-based nodular density in the right lung apex with morphology favoring scarring. Recommend six-month followup right chest CT without contrast. 2. Bilateral lower lobe atelectasis. 3. Coronary artery calcification. Johnathan Yan MD Chest X-Ray 10/14/172051 Signed Impressions: Service Date/Time: October 21:06 - CONCLUSION: No acute cardiopulmonary disease demonstrated. Lester Mann MD Procedures BiPAP Other Results Laboratory Tests Test 10/14/17 20:59 10/15/17 01:35 White Blood Count 6.8 TH/MM3 Red Blood Count 3.63 MIL/MM3 Hemoglobin 11.6 GM/DL Hematocrit 35.9 % Mean Corpuscular Volume 98.8 FL Mean Corpuscular Hemoglobin 31.9 PG Mean Corpuscular Hemoglobin Concent 32.3 % Red Cell Distribution Width 17.6 % Platelet Count 195 TH/MM3 Mean Platelet Volume 8.0 FL Neutrophils (%) (Auto) 72.3 % Lymphocytes (%) (Auto) 10.3 % Monocytes (%) (Auto) 15.2 % Eosinophils (%) (Auto) 2.0 % Basophils (%) (Auto) 0.2 % Neutrophils # (Auto) 4.9 TH/MM3 Lymphocytes # (Auto) 0.7 TH/MM3 Monocytes # (Auto) 1.0 TH/MM3 Eosinophils # (Auto) 0.1 TH/MM3 Basophils # (Auto) 0.0 TH/MM3 CBC Comment DIFF FINAL Differential Comment Blood Urea Nitrogen 22 MG/DL Creatinine 1.21 MG/DL Random Glucose 123 MG/DL Total Protein 7.5 GM/DL Albumin 3.3 GM/DL Calcium Level 8.2 MG/DL Alkaline Phosphatase 92 U/L Aspartate Amino Transf (AST/SGOT) 21 U/L Alanine Aminotransferase (ALT/SGPT) 32 U/L Total Bilirubin 0.4 MG/DL Sodium Level 141 MEQ/L Potassium Level 4.3 MEQ/L Chloride Level 104 MEQ/L Carbon Dioxide Level 32.4 MEQ/L Anion Gap 5 MEQ/L Estimat Glomerular Filtration Rate 59 ML/MIN Lactic Acid Level 1.0 mmol/L Troponin I LESS THAN 0.02 NG/ML B-Type Natriuretic Peptide 85 PG/ML Lipase 268 U/L Blood Gas Puncture Site RT RADIAL Blood Gas Patient Temperature 98.6 Blood Gas HCO3 31 mmol/L Blood Gas Base Excess 4.8 mmol/L Blood Gas Oxygen Saturation 92 % Arterial Blood pH 7.29 Arterial Blood Partial Pressure CO2 66 mmHg Arterial Blood Partial Pressure O2 75 mmHG Arterial Blood Oxygen Content 14.1 Vol % Arterial Blood Carboxyhemoglobin 1.7 % Arterial Blood Methemoglobin 0.5 % Blood Gas Hemoglobin 10.9 G/DL Oxygen Delivery Device BIPAP Blood Gas Ventilator Setting IPAP=12 EPAP=6 Blood Gas Inspired Oxygen 35 % Objective Remarks GENERAL: Obese patient in no acute distress. SKIN: No rashes, ecchymoses or lesions. Cool and dry. HEAD: Atraumatic. Normocephalic. No temporal or scalp tenderness. EYES: No scleral icterus. No injection or drainage. ENT: Nose without bleeding, purulent drainage or septal hematoma. Airway patent. NECK: Trachea midline. No JVD Supple, nontender, no meningeal signs.Short thick neck CARDIOVASCULAR: Regular rate and rhythm without murmurs, gallops, or rubs. RESPIRATORY: Decreased breath sounds bilateral, no wheezing or crackles. GASTROINTESTINAL: Abdomen soft, non-tender, nondistended. No guarding. MUSCULOSKELETAL: Extremities without clubbing, cyanosis, or edema No calf tenderness. NEUROLOGICAL: Quite sleepy and lethargic. Motor and sensory grossly within normal limits. Limited exam. Medications and IVs Current Medications Medications (Trade) Dose Ordered Sig/[place] Route Start Time Stop Time Status Last Admin (Narcan Inj) 0.2 mg UNSCH X1 PRN IV PUSH 10/14/17 21:00 10/14/17 21:08 (NS Flush) 2 ml UNSCH PRN IV FLUSH 10/15/17 00:15 (NS Flush) 2 ml BID IV FLUSH 10/15/17 09:00 10/17/17 08:26 (Narcan Inj) 0.4 mg UNSCH PRN IV PUSH 10/15/17 00:15 (Duoneb Neb) 1 ampule Q6HR NEB NEB 10/15/17 04:00 10/17/17 03:29 (Duoneb Neb) 1 ampule Q2HR NEB PRN NEB 10/15/17 00:15 (Aspirin) 325 mg DAILY PO 10/15/17 09:00 10/17/17 08:26 (Lipitor) 40 mg HS PO 10/15/17 21:00 10/16/17 20:04 (Aggrenox 200-25 Mg) 1 cap BID PO 10/15/17 09:00 10/17/17 08:25 (Folate) 1 mg DAILY PO 10/15/17 09:00 10/17/17 08:26 (Lopid) 600 mg BIDAC PO 10/15/17 07:00 10/17/17 06:00 (Cozaar) 12.5 mg DAILY PO 10/15/17 09:00 10/17/17 08:25 (Lopressor) 12.5 mg BID PO 10/15/17 09:00 10/17/17 08:26 (Protonix) 20 mg DAILY PO 10/15/17 09:00 10/17/17 08:26 (Lovenox Inj) 40 mg Q24H SQ 10/15/17 11:00 10/17/17 10:11 (Mucinex Er) 600 mg BID PO 1/13/18 11:00 10/17/17 08:26 A/P Assessment and Plan 1. Encephalopathy Improved, was probably secondary to CO2 narcosis,e held all narcotic medicines, continue BiPAP as needed, Oxygen to keep Oxygen saturation over 92%, asked for CT Chest found Right [place] lesion for follow up in six months. 2. Acute hypoxemic and hypercapnic respiratory failure Improved. probable obesity hypoventilation syndrome, Tobacco dependence and early COPD suspected, will need to follow with PCP for PFTs. as outpatient 3. FAM will need Polysomnography as outpatient. 4. bilateral Carotid artery CEA 5. Cerebral aneurysm repaired in 2008 6. TIA by history 7. Hypertension controlled. 8. PTSD and Anxiety disorder. 9. Severe Tobacco dependence strongly recommended to stop smoking. 10. CAD status post PCI and stent placement, CABG DVT prophylaxis with Lovenox. Discharge Planning Discharge Home now, on [facility] for Oxygen. Alexi Tran MD Oct 17, 2017 16:17
--- NOTE | 2017-10-17 16:19 | HHI.DS ---
Discharge Summary Admission Date Oct 15, 2017 at 00:12 Discharge Date: Oct 17, 2017 Admitting Diagnosis Hypercapnia (1) Respiratory distress ICD Code: R06.03 - Acute respiratory distress Diagnosis: Principal Status: Acute (2) Hypercapnia ICD Code: R06.89 - Other abnormalities of breathing Diagnosis: Principal Status: Acute Procedures BiPAP Brief History - From Admission History from ER physician communication, review of medical records, and nursing staff. Patient himself is quite lethargic and on BiPAP at the time of my examination. He would awaken to verbal stimuli but would fall straight back to sleep and does not answer questions. He is really not able to give any history at all. Per nursing staff who spoke to patient's son, this is usually how patient looked like at night time. Patient does not take his medications properly as prescribed and usually would take all his medications and one shot at nighttime. The son reported that the father always looks drowsy and sleepy at night times such as this. Per the son's report to ER, patient has been having shortness of breath, sore throat, and cough for past few days. EMS arrival patient's O2 sats was 85% on room air. Patient was brought in by EMS on nonrebreather. He was also on nonrebreather briefly while in ER. He took a bunch of medications prior to arrival to ER. Therefore patient became more and more lethargic while in ER. His ABGs revealed CO2 retention. He was immediately placed on BiPAP. History is limited as patient is not able to give properly. CBC/BMP: 10/14/17205810/14/172058 Significant Findings Laboratory Tests Test 10/14/17 20:59 10/14/17 23:20 10/15/17 01:35 Red Blood Count 3.63 MIL/MM3 (4.50-5.90) Hemoglobin 11.6 GM/DL (13.0-17.0) Hematocrit 35.9 % (39.0-51.0) Red Cell Distribution Width 17.6 % (11.6-17.2) Neutrophils (%) (Auto) 72.3 % (16.0-70.0) Monocytes (%) (Auto) 15.2 % (0.0-8.0) Lymphocytes # (Auto) 0.7 TH/MM3 (1.0-4.8) Monocytes # (Auto) 1.0 TH/MM3 (0-0.9) Blood Urea Nitrogen 22 MG/DL (7-18) Random Glucose 123 MG/DL (74-106) Albumin 3.3 GM/DL (3.4-5.0) Calcium Level 8.2 MG/DL (8.5-10.1) Carbon Dioxide Level 32.4 MEQ/L (21.0-32.0) Estimat Glomerular Filtration Rate 59 ML/MIN (>89) Troponin I LESS THAN 0.02 NG/ML Blood Gas HCO3 30 mmol/L (22-26) 31 mmol/L (22-26) Blood Gas Base Excess 3.9 mmol/L (-2-2) 4.8 mmol/L (-2-2) Arterial Blood pH 7.27 (7.380-7.420) 7.29 (7.380-7.420) Arterial Blood Partial Pressure CO2 67 mmHg (38-42) 66 mmHg (38-42) Blood Gas Hemoglobin 10.6 G/DL (12.0-16.0) 10.9 G/DL (12.0-16.0) Imaging Last Impressions Chest CT 10/16/17 0000 Signed Impressions: Service Date/Time: Monday, October 16, 2017 12:17 - CONCLUSION: 1. Pleural-based nodular density in the right lung apex with morphology favoring scarring. Recommend six-month followup right chest CT without contrast. 2. Bilateral lower lobe atelectasis. 3. Coronary artery calcification. Johnathan Yan MD Chest X-Ray 10/14/172051 Signed Impressions: Service Date/Time: October 21:06 - CONCLUSION: No acute cardiopulmonary disease demonstrated. Lester Mann MD PE at Discharge GENERAL: Obese patient in no acute distress. SKIN: No rashes, ecchymoses or lesions. Cool and dry. HEAD: Atraumatic. Normocephalic. No temporal or scalp tenderness. EYES: No scleral icterus. No injection or drainage. ENT: Nose without bleeding, purulent drainage or septal hematoma. Airway patent. NECK: Trachea midline. No JVD Supple, nontender, no meningeal signs.Short thick neck CARDIOVASCULAR: Regular rate and rhythm without murmurs, gallops, or rubs. RESPIRATORY: Decreased breath sounds bilateral, no wheezing or crackles. GASTROINTESTINAL: Abdomen soft, non-tender, nondistended. No guarding. MUSCULOSKELETAL: Extremities without clubbing, cyanosis, or edema No calf tenderness. NEUROLOGICAL: Quite sleepy and lethargic. Motor and sensory grossly within normal limits. Limited exam. Hospital Course This is a pleasant 72 y/o male who came to ER lethargic and was placed on BiPAP , he is non compliant with medicines he had shortness of breath, sore throat, cough ABGs showed CO2 retention, as we know he has CAD status post stent placement and CABG, Bilateral carotid artery CEA, Cerebral aneurysm repaired in 2008, TIA, Hypertension, PTSD, Anxiety disorder, seen in his bedroom in the presence of his Brother, he is cleaning his house due to Bed bugs. Improving respiratory status. 10/17: Stable in his bedroom, discussed with his Brother and nurse, failed walking test will need oxygen at discharge, was discussed about Tobacco dependence and the need to stop smoking, will go home on Symbicort and Mucinex, oxygen and stop smoking to improve his condition, also will need to follow with PCP may have Sleep apnea and will need Polysomnography also probable obesity hypoventilation syndrome, weight loss warranted. Assessment and Plan 1. Encephalopathy Improved, was probably secondary to CO2 narcosis,e held all narcotic medicines, continue BiPAP as needed, Oxygen to keep Oxygen saturation over 92%, asked for CT Chest found Right [place] lesion for follow up in six months. 2. Acute hypoxemic and hypercapnic respiratory failure Improved. probable obesity hypoventilation syndrome, Tobacco dependence and early COPD suspected, will need to follow with PCP for PFTs. as outpatient 3. FAM will need Polysomnography as outpatient. 4. bilateral Carotid artery CEA 5. Cerebral aneurysm repaired in 2008 6. TIA by history 7. Hypertension controlled. 8. PTSD and Anxiety disorder. 9. Severe Tobacco dependence strongly recommended to stop smoking. 10. CAD status post PCI and stent placement, CABG DVT prophylaxis with Lovenox. Discharge Planning Discharge Home now, on [facility] for Oxygen. Pt Condition on Discharge: Good Discharge Disposition: Disch w/ Home Health Serv Discharge Time: <= 30 minutes Discharge Instructions DIET: Follow Instructions for: Heart Healthy Diet, Diabetic Diet Activities you can perform: Regular-No Restrictions Alexi Tran MD Oct 17, 2017 16:19
== END 2017-10-17 18:44 | disposition home health service (06) | DRG 189 ==
LOC: NEPC 20:36 → NEDA 10-15 00:12 → HCIS 10-15 04:52
PROVIDERS: ADMIT Internal Medicine; ATTEND Internal Medicine
PROC: 5A09457 Assistance with Respiratory Ventilation, 24-96 Consecutive Hours, Continuous Positive Airway Pressure (ICD-10-PCS; principal; 2017-10-15)
DX: J96.02 Acute respiratory failure with hypercapnia (principal); G93.49 Other encephalopathy; E87.2 Acidosis; I11.0 Hypertensive heart disease with heart failure; I50.9 Heart failure, unspecified; E66.2 Morbid (severe) obesity with alveolar hypoventilation; J44.9 Chronic obstructive pulmonary disease, unspecified; F43.10 Post-traumatic stress disorder, unspecified; I25.10 Atherosclerotic heart disease of native coronary artery without angina pectoris; J96.01 Acute respiratory failure with hypoxia; K21.9 Gastro-esophageal reflux disease without esophagitis; F32.9 Major depressive disorder, single episode, unspecified; I25.2 Old myocardial infarction; J02.9 Acute pharyngitis, unspecified; E78.00 Pure hypercholesterolemia, unspecified; R26.81 Unsteadiness on feet; F17.200 Nicotine dependence, unspecified, uncomplicated; Z68.38 Body mass index [BMI] 38.0-38.9, adult; Z86.73 Personal history of transient ischemic attack (TIA), and cerebral infarction without residual deficits; Z88.5 Allergy status to narcotic agent; Z91.14 Patient's other noncompliance with medication regimen; Z95.1 Presence of aortocoronary bypass graft; Z95.5 Presence of coronary angioplasty implant and graft
CPT/HCPCS: 36600; 71045; 71250; 80053; 82805; 82948; 83605; 83690; 83880; 84484; 85025; 87040; 87804; 93005; 94002; 94003; 94150; 94618; 94640; 94664; 96365; 96367; 96375; J1650; J2310; J2543; J3370; J7050